=== PATIENT | male | born 1960 | race Native Hawaiian/Other Pacific Islander ===

== ENCOUNTER 2022-01-10 10:38 | Outpatient (CLI) | payer OTHER ==
[2022-01-10 11:02] LABS: PLATELET COUNT 166 K/uL (142-355)
[2022-01-10 11:28] LABS: POTASSIUM 4.2 mmol/L (3.6-5.2)
== END 2022-01-10 19:05 | disposition home or self-care (01) ==
LOC: LABW 10:38
PROVIDERS: ATTEND Family Medicine
DX: F32.9 Major depressive disorder, single episode, unspecified (principal); I10 Essential (primary) hypertension; F41.1 Generalized anxiety disorder; K21.9 Gastro-esophageal reflux disease without esophagitis; Z86.39 Personal history of other endocrine, nutritional and metabolic disease; E78.5 Hyperlipidemia, unspecified; E78.2 Mixed hyperlipidemia; R73.03 Prediabetes; M1A.9XX0 Chronic gout, unspecified, without tophus (tophi)
CPT/HCPCS: 36415; 80053; 80061; 81002; 83735; 84403; 84550; 85027